=== PATIENT | female | born 2000 | race Caucasian/White ===

== ENCOUNTER 2021-01-15 15:51 | Outpatient (CLI) | payer BC, SELFPAY ==
[2021-01-15 16:59] LABS: Alanine Aminotransferase 9 U/L (4-35); Albumin Level 4.3 g/dL (3.5-5.1); Alkaline Phosphatase 50 U/L (38-126); Anion Gap 8 mmol/L (8-16); Aspartate Amino Transferase 20 U/L (14-36); Bilirubin,Total 0.4 mg/dL (0.2-1.3); Blood Urea Nitrogen 11 mg/dL (7-17); Calcium 8.6 mg/dL (8.4-10.2); Carbon Dioxide 28 mmol/L (22-30); Chloride 105 mmol/L (98-107); Estimated Glomerular Filt Rate > 60; Glucose 87 mg/dL (65-105); Potassium 3.7 mmol/L (3.4-5.0); Sodium 141 mmol/L (137-145)
[2021-01-17 18:36] LABS: EBV Nuclear Ab Antibody <18.00 U/mL (<18.00); EBV Nuclear Ab Interpretation Negative; EBV Virus Capsid Ag IgG Ab <18.00 U/mL (<18.00); EBV Virus Capsid Ag IgM Ab <36.00 U/mL (<36.00)
[2021-01-18 08:54] LABS: CMV IgM Antibody <30.00 AU/mL (<30.00)
== END 2021-01-15 15:52 | disposition home or self-care (01) ==
LOC: ANHLAB 15:53
PROVIDERS: PCP Internal Medicine; Visit Provider Nurse Practitioner Family
DX: J02.9 Acute pharyngitis, unspecified (principal)
CPT/HCPCS: 36415; 80053; 86644; 86645; 86664; 86665